=== PATIENT | female | born 1960 | race Caucasian/White ===

== ENCOUNTER → 2023-12-21 | Outpatient (CLI) | payer OTHER ==
--- NOTE | 2023-12-21 15:41 | XR ---
EXAMINATION TYPE: XR wrist complete 4 views LT, XR knee complete 3 views LT, XR hand complete 3 views LT DATE OF EXAM: 12/21/2023 COMPARISON: NONE HISTORY: 63-year-old female pain after fall one day ago FINDINGS: Left wrist: The radiocarpal and distal radial ulnar joint as well as mid carpal compartment appear intact. There is some mild sided soft tissue swelling noted. No acute fracture, fixation or dislocation is seen. Left hand: Moderate degenerative joint space narrowing and marginal spurring at the first CMC and triscaphe join ts. There is osteopenia. Scattered mild degenerative spurring throughout the DIP joints of the hand. No acute fracture, subluxation, dislocation is seen. Left knee: Mild degenerative spurring at the patellofemoral compartment. Mild anterior soft tissue swelling. Ex tensor mechanism appears intact. No sizable joint effusion. No acute fracture, subluxation, dislocati on. IMPRESSION: 1. Left wrist: Mild ulnar sided soft tissue swelling. No acute osseous abnormality seen. 2. Left hand: Mild to moderate OA at the basal joint of the thumb and also scattered in the DIP joint s of the fingers. No acute osseous abnormality seen. 3. Left knee: Mild prepatellar soft tissue swelling. No underlying acute osseous abnormality seen.
== END | disposition home or self-care (01) ==
LOC: RADXRMAIN 13:28
PROVIDERS: ATTEND Emergency Medicine
DX: S60.222A Contusion of left hand, initial encounter (principal); S60.212A Contusion of left wrist, initial encounter; S80.02XA Contusion of left knee, initial encounter; M19.042 Primary osteoarthritis, left hand; X58.XXXA Exposure to other specified factors, initial encounter